=== PATIENT | female | born 1975 | race Caucasian/White ===

== ENCOUNTER → 2016-12-30 | Day surgery (SDC) | payer BC ==
[2016-12-07 13:40] VITALS: Ht 165.1 cm; Wt 100.0 kg
--- NOTE | 2016-12-21 11:00 | HISTORY & PHYSICAL EXAMINATION ---
DATE OF ADMISSION: CHIEF COMPLAINT: Irregular heavy vaginal bleeding with clotting. HISTORY OF PRESENT ILLNESS: The patient is a 41-year-old 3, para 1. She had a right-sided ectopic which was removed laparoscopically by removing the right tube. She is presently on Synthroid for hypothyroidism. She is on Lexapro and she takes Imitrex p.r.n. for migraines headaches. Her first was a vaginal . Her second was a and at the time of , she had remaining left tube removed and so she has had both tubes removed for control. She has a history of irregular prolonged heavy bleeding for over 8 months. She is unable to time her cycles. At times she bleeds for as much as 12 days. At times heavy with severe pain and dysmenorrhea and clotting passing large clots and soaking a pad an hour and has difficulty leaving the house at time due to the heavy bleeding. A transvaginal ultrasound on 11/16/2016 revealed a thickened endometrial stripe at 1.2 cm. She is presently being scheduled for an outpatient D&C, hysteroscopy and endometrial ablation. PAST MEDICAL HISTORY: She has 2 children in good health. ALLERGIES: She has no known drug allergies. PAST SURGICAL HISTORY: She has had a . She has had an appendectomy. She has had her left knee operated on twice. She has had her left fallopian tube removed at the time of and her right fallopian tube removed for an ectopic . MEDICAL HISTORY: She has a history of hypothyroidism and migraines and she is on Synthroid, Lexapro and Imitrex p.r.n. SOCIAL HISTORY: No smoking. No excessive alcohol intake. Works at home. FAMILY HISTORY: Mom is 66 in good health. Father is 69, has had 2 myocardial infarctions. She has 1 brother and 1 sister. Her brother has elevated blood pressure. REVIEW OF SYSTEMS: She has history of migraine headaches for years. She takes Imitrex p.r.n. PHYSICAL EXAMINATION: GENERAL: Well-developed, well-nourished 41-year-old white female, alert, oriented x3 and cooperative in no acute distress, appears stated age. EYES: Conjunctivae are pink, sclerae white, no evidence of jaundice. EARS: Had normal light reflex bilaterally. NOSE: Had normal mucosa. Septum is midline. There were no polyps. THROAT: No erythema or evidence of infection. Teeth are in good state of repair. HEAD: Normocephalic, normal distribution of hair. NECK: Supple. Trachea midline. Thyroid is not enlarged. There is no adenopathy appreciated. Both carotids are of good intensity. CHEST: Clear to auscultation and percussion. No wheezes, rales or rhonchi appreciated. HEART: Had regular rhythm. S1 and S2 are normal. BREASTS: Normal. ABDOMEN: Soft and nontender. There is a well-healed Pfannenstiel scar. PELVIC: Revealed normal-appearing cervix. Uterus was top normal size, retroverted. There were no adnexal masses appreciated. MUSCULOSKELETAL: Revealed no calf tenderness. IMPRESSIONS OF THIS CASE: Hypermenorrhea, abnormal transvaginal ultrasound, status post , status post appendectomy, status post left knee surgery x2, status post salpingectomy for ectopic .
[~2016-12-30] VITALS: Ht 165.1 cm; Wt 100.0 kg
[~2016-12-30] MED LIST: ATROPINE SULFATE 0.1 MG/ML 5ML SYR IV PRN; CHECK SCOPOLAMINE PATCH PLACEMENT SCH; DEXAMETHASONE SOD INJ 4 MG/ML VIAL ONE; ESCI1TAB10 PO; EpHEDrine SULFATE INJ 50 MG/ML AMP IV PRN; FENTANYL CITRATE INJ 50 MCG/1 ML 2 ML VIAL ONE; GLYCOPYRROLATE INJ 0.2 MG/ML VIAL ONE; HYDROCODONE/ACETAMOPHEN 5/325MG TAB PO PRN; IBUPROFEN 600 MG TAB PO PRN; KETOROLAC TROMETHAMINE 30 MG/ML VIAL IV. PRN; KETOROLAC TROMETHAMINE 30 MG/ML VIAL ONE; LACTATED RINGER'S 1000ML 1,000 ML IV SCH; LEVO100T7 PO; LIDOCAINE HCL 2% 2 ML VIAL (20MG/ML) ONE; MIDAZOLAM HCL 1 MG/ML 2ML VIAL ONE; ONDANSETRON 4MG OD TAB PO STA; ONDANSETRON 8MG OD TAB ONE; ONDANSETRON INJ 2 MG/ML 2 ML VIAL IV PRN; ONDANSETRON INJ 2 MG/ML 2 ML VIAL ONE; OXYCODONE/ACETAMINOPHEN 5-325 TAB PO PRN; PROPOFOL IV EMULSION 10 MG/ML 20 ML VIAL IV ONE; SCOPOLAMINE 1.5 MG TDSY TD ONE; SODIUM CHLORIDE 0.9% 1000ML 1,000 ML IV SCH; SUMA100T16 PO
--- NOTE | 2016-12-30 13:28 | History & Physical Bridge Note ---
H&P Re-Evaluation Bridge Note: I have examined the patient, reviewed the History & Physical and in the interval since the performance of the History & Physical I have noted the following changes of clinical significance: No changes noted
--- NOTE | 2016-12-30 14:18 | [facility] Post Operative Brief Note ---
Immediate Operative Summary Operative Date Dec 30, 2016. Pre-Operative Diagnosis hypermenorria, irregular vaginal bleeding Post-Operative Diagnosis same Procedure(s) Performed Dilatation And Curettage, Hysteroscopy With Endometrial Ablation Surgeon Dr Buchanan Lmsw Surgeon(s) none Estimated Blood Loss 10 ml Findings UTERUS SOUNDED TO 8 CM Specimens A) Endometrial Curettings Disposition Recovery Room / PACU
--- NOTE | 2016-12-30 14:22 | Discharge Instructions-SurgCtr ---
Discharge Instructions Date of Service Dec 30, 2016. Visit Reason for Visit: Hypermenorria, Irregular Vaginal Bleeding Discharge Discharge Diagnosis / Problem: HEAVY VAGINAL BLEEDING Discharge Goals Goal(s): Improve function, Learn about illness Activity Recommendations Activity Limitations: as noted below ACTIVITY RECOMMENDATIONS: * Avoid tampons, douching, hot tubs, pools, and intercourse until bleeding has stopped. * May shower as usual. * No strenuous activity for 24-48 hours. After 24-48 hours, you may do anything you feel like doing (driving and sports are okay). SPECIAL CARE INSTRUCTIONS: Special Diet: * Mild nausea may occur in the immediate post-operative period. * Take clear liquids such as tea, cola or bouillon until all nausea has subsided; you may then resume your normal diet. Special Care: * Light bleeding and vaginal spotting can last from a few days to 3-4 weeks. Call your doctor if bleeding becomes heavier than the heaviest part of your period. * Check your temperature twice a day for one week. If it goes above 100.4 degrees Fahrenheit (38.0 Celsius), notify your doctor. * Call your doctor's office for an appointment for 6 weeks after your surgery. FOLLOW-UP VISIT: Call your doctor's office for an appointment for 6 weeks after your surgery. Anesthesia . Post Anesthesia Instructions: If you have had General Anesthesia or IV Sedation: * Do not drive today. * Resume driving when surgeon permits. * Do not make important decisions or sign legal documents today. * Call surgeon for: 1. Temperature elevations greater than 101 degrees F. 2. Uncontrollable pain. 3. Excessive bleeding. 4. Persistent nausea and vomiting. 5. Medication intolerance (nausea, vomiting or rash). * For nausea and vomiting use only clear liquids such as: tea, soda, bouillon until nausea subsides, then gradually increase diet as tolerated. * If you have any concerns or questions, call your surgeon's office. If physician is unavailable and it is an emergency, call 911 or go to the nearest emergency room. . Instructions / Follow-Up Instructions / Follow-Up ACTIVITY RECOMMENDATIONS: * Avoid tampons, douching, hot tubs, pools, and intercourse until bleeding has stopped. * May shower as usual. * No strenuous activity for 24-48 hours. After 24-48 hours, you may do anything you feel like doing (driving and sports are okay). SPECIAL CARE INSTRUCTIONS: Special Diet: * Mild nausea may occur in the immediate post-operative period. * Take clear liquids such as tea, cola or bouillon until all nausea has subsided; you may then resume your normal diet. Special Care: * Light bleeding and vaginal spotting can last from a few days to 3-4 weeks. Call your doctor if bleeding becomes heavier than the heaviest part of your period. * Check your temperature twice a day for one week. If it goes above 100.4 degrees Fahrenheit (38.0 Celsius), notify your doctor. * Call your doctor's office for an appointment for 6 weeks after your surgery. FOLLOW-UP VISIT: Call your doctor's office for an appointment for 6 weeks after your surgery. Diet Recommendations Home Diet: resume previous diet Procedures Procedures Performed: Dilatation And Curettage, Hysteroscopy With Endometrial Ablation Pending Studies Studies pending at discharge: no Medical Emergencies . Who to Call and When: Medical Emergencies: If at any time you feel your situation is an emergency, please call 911 immediately. . Non-Emergent Contact Non-Emergency issues call your: Funeral Counselor Call Non-Emergent contact if: temperature is above 100.5 . . "Provider Documentation" section prepared by Rl Buchanan. .
[2016-12-30] MEDS: FENTANYL CITRATE INJ 50 MCG/1 ML 2 ML VIAL IV PRN ×2 (14:25→14:41)
--- NOTE | 2016-12-30 14:30 | OPERATIVE REPORT ---
DATE OF OPERATION: 12/30/2016 INDICATIONS FOR SURGERY: Heavy vaginal bleeding. PREOPERATIVE DIAGNOSIS: Dysfunctional uterine bleeding. POSTOPERATIVE DIAGNOSIS: Same. Pathology pending. Uterus sounded to 8 cm. PROCEDURE: D&C, hysteroscopy, endometrial ablation. SURGEON: Dr. Buchanan. ESTIMATED BLOOD LOSS: 10 mL. ANESTHESIA: General. OPERATIVE FINDINGS AND PROCEDURE: The patient was brought to the OR table, correctly identified by armband and conversation. General anesthesia was administered. Perineum and vagina were painted with Betadine paint, draped in usual sterile fashion. Careful pelvic exam under anesthesia revealed a mid to reverted uterus top normal size. There were no adnexal masses appreciated. A catheter was used to empty the bladder. A weighted speculum was placed in the posterior vagina. Anterior lip of the cervix grasped with single tooth tenaculum. Uterus sounded to 8 cm. Cervix was dilated with graduated dilators. Hysteroscope was placed in the endometrial cavity. There are no obvious polyps present, a lot of redundant tissue. The scope was removed. The endometrial cavity was thoroughly and systematically curetted. This was productive of a moderate amount of grossly normal-appearing tissue. Following this, a NovaSure endometrial ablation device was placed in the uterine cavity, it was opened and closed several times. The cervical length was set at 4.5 cm and it opened to about 4 cm. First the integrity test was performed to make sure the uterus had not been perforated, it passed and then the machine turned on. After the machine had stopped we waited several seconds then removed the device, then reinserted the hysteroscope. The endometrial cavity had a nice burn. Pictures were taken. Following this, instruments were removed. The patient tolerated the procedure well and left the OR in good condition. I attest to the content of the Intraoperative Record and any orders documented therein. Any exception s are noted below.
[2016-12-30 15:02] VITALS: TEMP 36.5
--- NOTE | 2016-12-30 15:23 | Anesthesia Progress Nt - [facility] ---
Anesthesia Post Op Note Date & Time Dec 30, 2016 at 15:23 Vital Signs Pain Intensity: 7.0 Vital Signs Past 12 Hours Date Time Temp Pulse Resp B/P (MAP) Pulse Ox O2 Delivery O2 Flow Rate FiO2 12/30/16 15:00 127/86 12/30/16 15:00 36.5 56 18 127/86 95 Room Air 12/30/16 14:57 64 17 98 12/30/16 14:57 61 17 12/30/16 14:55 130/90 12/30/16 14:52 58 15 93 12/30/16 14:52 61 15 12/30/16 14:51 130/82 12/30/16 14:47 66 16 12/30/16 14:47 68 16 98 12/30/16 14:45 133/84 12/30/16 14:42 59 14 100 12/30/16 14:42 59 14 12/30/16 14:40 139/89 12/30/16 14:37 55 12 12/30/16 14:37 56 12 100 12/30/16 14:36 137/94 12/30/16 14:32 56 17 98 12/30/16 14:32 55 17 12/30/16 14:30 140/89 12/30/16 14:27 63 15 99 12/30/16 14:27 63 15 12/30/16 14:25 131/88 12/30/16 14:22 64 13 100 12/30/16 14:22 64 13 12/30/16 14:20 126/93 12/30/16 14:18 141/92 12/30/16 14:07 37.1 81 12 141/92 100 Mask 6 12/30/16 12:37 37.0 63 20 126/84 (98) 97 Room Air Notes Mental Status: alert / awake / arousable, participated in evaluation Pt Amnestic to Procedure: Yes Nausea / Vomiting: adequately controlled Pain: adequately controlled Airway Patency, RR, SpO2: stable & adequate BP & HR: stable & adequate Hydration State: stable & adequate Anesthetic Complications: no major complications apparent
[2016-12-30 15:48] VITALS: BP 119/75; PULSE 52; O2SAT 95
== END | disposition home or self-care (01) ==
LOC: X.SURG 12:25
PROVIDERS: ATTEND Obstetrics & Gynecology
DX: N93.8 Other specified abnormal uterine and vaginal bleeding (principal); E03.9 Hypothyroidism, unspecified; Z79.899 Other long term (current) drug therapy